=== PATIENT | male | born 1965 | race Caucasian/White ===

== ENCOUNTER → 2018-10-02 | Outpatient (CLI) | payer BC ==
[~2018-10-02] MED LIST: CLON.5 PO; GLIM4 PO; MELO7.5 PO; METF500 PO; METO50 PO; METO50ER PO; OXYACE5T PO; PIOG15 PO; [UNRECOGNIZED DRUG - REMARK]; [UNRECOGNIZED DRUG - REMARK]; [UNRECOGNIZED DRUG - REMARK]
== END | disposition home or self-care (01) ==
LOC: LAB 10:15 → LAB SHORT 10:15
DX: L03.314 Cellulitis of groin (principal)
CPT/HCPCS: 87070; 87075; 87077; 87147; 87186; 87205

== ENCOUNTER → 2019-04-16 | Outpatient (CLI) | payer OTHER ==
[2019-04-16 13:42] LABS: Source, Urine Clean Catch
[2019-04-16 15:28] LABS: Bilirubin, Urine Neg (Neg); Blood, Urine Neg (Neg); Glucose Qualitative, Urine 4+ (Neg); Ketones, Urine 1+ (Neg); Leukocyte Esterase, Urine Neg (Neg); Nitrite, Urine Neg (Neg); Protein, Urine 1+ (Neg); Specific Gravity, Urine 1.015 (1.003-1.022); Urobilinogen, Urine NORM (Normal)
[2019-04-16 15:36] LABS: Appearance, Urine Clear (Clear); Color, Urine Yellow (P-Yellow)
== END | disposition home or self-care (01) ==
LOC: LAB 13:38 → LAB SHORT 13:38
PROVIDERS: Nurse Practitioner
DX: R10.9 Unspecified abdominal pain (principal)
CPT/HCPCS: 81003

== ENCOUNTER 2021-05-16 00:59 | Inpatient (IN) | payer BC ==
[~2021-05-16] VITALS: Ht 172.7 cm; Wt 115.7 kg
[2021-05-16] MEDS ORDERED: Simvastatin10 MG PO (02:35)
[2021-05-16] MEDS ORDERED: LOSARTAN POTASS25 M2 PO (02:35)
[2021-05-16] MEDS ORDERED: FARXIGA10 MG PO (02:36)
[2021-05-16 03:02] LABS: BASOPHILS ABSOLUTE AUTO 0.05 K/mm3 (0.00-0.23); BASOPHILS PERCENT AUTO 0 % (0-2); EOSINOPHILS ABSOLUTE AUTO 0.01 K/mm3 (0.00-0.68); EOSINOPHILS PERCENT AUTO 0 % (0-6); Hematocrit 47.7 % (37.0-53.0); Hemoglobin 16.7 g/dL (13.5-17.5); IMMATURE GRAN ABSOLUTE AUTO 0.07 K/mm3 (0.00-0.10); IMMATURE GRAN PERCENT AUTO 1 % (0-1); LYMPHOCYTES ABSOLUTE AUTO 1.21 K/mm3 (0.84-5.20); LYMPHOCYTES PERCENT AUTO 9 % (21-46); MONOCYTES ABSOLUTE AUTO 0.55 K/mm3 (0.16-1.47); MONOCYTES PERCENT AUTO 4 % (4-13); Mean Corpuscular HGB 30.5 pg (26.0-34.0); Mean Corpuscular Volume 87 fL (80-100); NEUTROPHILS ABSOLUTE AUTO 11.88 K/mm3 (1.96-9.15); NEUTROPHILS PERCENT AUTO 86 % (41-73); Platelet Count 189 K/mm3 (150-400); RDW Coefficient Variation 12.8 % (11.7-14.2); Red Blood Cell Count 5.48 M/mm3 (4.30-5.90); White Blood Cell Count 13.77 K/mm3 (4.00-11.30)
[2021-05-16 03:19] LABS: Anion Gap 11 mmol/L (6-16); Blood Urea Nitrogen 13 mg/dL (8-24); Bun/Creatinine Ratio 16.8 (12.0-20.0); CO2, Blood 25 mmol/L (21-32); Calcium, Blood 9.1 mg/dL (8.5-10.1); Chloride, Blood 102 mmol/L (98-108); Creatinine, Blood 0.78 mg/dL (0.60-1.20); Glomerular Filtration Rate >60 (60-); Glucose, Blood 234 mg/dL (70-99); Sodium, Blood 138 mmol/L (136-145)
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
[2021-05-16 12:59] LABS: SARS-Cov-2 (COVID-19) PCR, MMC NEGATIVE (NEGATIVE)
--- NOTE | 2021-05-16 16:21 | NUR ---
PT ARRIVED TO THE MEDICAL FLOOR FROM THE ER AROUND 1300 VIA GURNEY. THE PT WAS ABLE TO TRANSFER FROM THE GURNEY TO THE BED WITH 1 PERSON ASSIST. THE PT APPEARS TO BE BREATHING EASILY ON RA. THE PT WAS ABLE TO ANSWER QUESTIONS APPROPRIATLY. THE PT IS A/OX4. PT WAS ORIENTED TO THE ROOM CALL SYSTEM AND LAYOUT. DR. OROZCO CONSULTED ON THE P,T PLAN IS FOR UPPER SCOPE TOMORROW. CALL LIGHT IN REACH, WILL CONTINUE TO MONITOR AND ASSESS FOR CHANGES
--- NOTE | 2021-05-16 19:07 | NUR ---
The patient is A/OX4 to person, place, time and event. The patient has been pleasent and cooperative with his care. He had right side chest pain and had a chest tube placed. He was medicated with sublimaze and he stated it controlled the pain. He has not asked for additional pain medication and stated his current level of pain is a 2/10. His chest tube us attached to a pleuravac and is attached to wall suction. There is some blood in the collection container. The patient is not on rm air. He is a stand by assist to the BSC. He has not had any acute changes since the chest tube and all lung martinez were clear. The patient is lying in his bed watching TV.
--- NOTE | 2021-05-17 07:13 | NUR ---
SHIFT SUMMARY PT IS A 55 Y/O MALE, ADMITTED FOR R PNEUMOTHORAX. HE IS A&O X 4, SBA. CHEST TUBE IN PLACE, DRAINING SEROSANGUINOUS FLUID. HE WAS MEDICATED FOR PAIN WITH PRN NORCO. NO C/O NAUSEA OR SOB. VITAL SIGNS STABLE. NO ACUTE CHANGES IN PT CONDITION NOTED IN PT CONDITION NOTED DURING THE NIGHT. WILL CONTINUE TO MONITOR AND TREAT PER EMAR UNTIL HAND OFF TO DAY SHIFT RN.
--- NOTE | 2021-05-17 18:23 | NUR ---
SHIFT SUMMARY. CHEST TUBE REMOVED BY DR. HUNTER THIS AFTERNOON, POST CXR D/C ORDERS RECIEVED. IV'S REMOVED. D/C INSTRUCTIONS REVIEWED WITH PT AND COPY PROVIDED. PT ESCORTED TO ENTRANCE BY CRALOZ MARTÍNEZ VIA W/C. NO OTHER CHANGES OR CONCERNS.
== END 2021-05-17 18:11 | disposition home or self-care (01) | DRG 201 ==
LOC: ER 00:59 → MEDS 01:00
PROVIDERS: Emergency Medicine; ADMIT Surgery
PROC: 0W9930Z Drainage of Right Pleural Cavity with Drainage Device, Percutaneous Approach (ICD-10-PCS; principal; 2021-05-16)
DX: S27.0XXA Traumatic pneumothorax, initial encounter (principal); I10 Essential (primary) hypertension; F41.9 Anxiety disorder, unspecified; E11.9 Type 2 diabetes mellitus without complications; Z20.822 Contact with and (suspected) exposure to COVID-19; Z96.641 Presence of right artificial hip joint; Y04.0XXA Assault by unarmed brawl or fight, initial encounter; Y09 Assault by unspecified means; Z79.84 Long term (current) use of oral hypoglycemic drugs; Z79.899 Other long term (current) drug therapy
CPT/HCPCS: 71045; 71046; 71250; 80048; 85025; 96374; 99285-25; A9270; G0378; J3010; U0004

== ENCOUNTER 2022-03-23 09:00 | Day surgery (SDC) | payer OTHER ==
[~2022-03-23] VITALS: Ht 180.3 cm; Wt 107.9 kg
[~2022-03-23 09:00] MED LIST changes: +FARXIGA10 MG PO; +LOSARTAN POTASS25 M2 PO; +RYBELSUS7 MG PO; +SIMV10 PO; +Simvastatin10 MG PO
--- NOTE | 2022-03-23 10:24 | NUR ---
Ambulatory in Day Surgery Discharge instructions reviewed with patient. Patient verbalizes understanding. Copy given to patient to take home.Patient states colon prep results clear. History, Chart, Medications and Allergies reviewed before start of procedure.Pre-Op teaching done. Pt verbalizes understanding. Patient States Post-Procedure ride home has been arranged.
--- NOTE | 2022-03-23 10:26 | NUR ---
03/23/22 1026 Janelle Lancaster History, Chart, Medications and Allergies reviewed before start of procedure.HISTORY, CHART, MEDICATIONS AND ALLERGIES REVIEWED BEFORE START OF PROCEDURE. PATIENT CONFIRMS NPO STATUS AND AGREES WITH SCHEDULED PROCEDURE. 3-LEAD EKG REVIEWED WITH PHYSICIAN PRIOR TO START OF PROCEDURE. MONITOR INTACT WITH CONTINUOUS PULSE OXIMETRY,CAPNOGRAPHY, 3-LEAD EKG, INTERMITTENT BP. SUPPLEMENTAL O2 TO BE TITRATED THROUGHOUT PROCEDURE TO MAINTAIN O2 SATURATION ABOVE 90%. PATIENT DETERMINED TO BE ASA APPROPRIATE FOR PROPOFOL SEDATION PRIOR TO START OF PROCEDURE BY DR. CHANG
--- NOTE | 2022-03-23 11:31 | NUR ---
Discharged via wheelchair to private car for ride home.
--- NOTE | 2022-03-23 11:31 | NUR ---
Discharge instructions reviewed with patient. Patient verbalizes understanding. Copy given to patient to take home. Patient States Post-Procedure ride home has been arranged.
== END 2022-03-23 23:26 | disposition home or self-care (01) ==
LOC: ORSCMMR 09:00 → ORD 10:00 → ORSCMMR 23:26
PROVIDERS: Internal Medicine Gastroenterology
PROC: 0DJD8ZZ Inspection of Lower Intestinal Tract, Via Natural or Artificial Opening Endoscopic (ICD-10-PCS; principal; 2022-03-23 10:00)
DX: Z12.11 Encounter for screening for malignant neoplasm of colon (principal); I10 Essential (primary) hypertension; E11.9 Type 2 diabetes mellitus without complications; E78.00 Pure hypercholesterolemia, unspecified; E66.9 Obesity, unspecified; Z68.34 Body mass index [BMI] 34.0-34.9, adult; Z79.899 Other long term (current) drug therapy
CPT/HCPCS: 82947; J2704; J7120

== ENCOUNTER 2023-01-03 09:22 | Day surgery (SDC) | payer OTHER ==
[2023-01-03] VITALS (17 sets, daily range): BP systolic 79–119; BP diastolic 45–90
[~2023-01-03] VITALS: Ht 180.3 cm; Wt 108.7 kg
--- NOTE | 2023-01-03 16:07 | NUR ---
ARRIVAL PATIENT TO UNIT VIA BED. AQUACEL TO LEFT HIP, C/D/I. PATIENT DENIES PAIN, HAD SPINAL FOR SURGERY. SENSATION TO BLE ALTHOUGH STILL NUMB, UNABLE TO WIGGLE TOES AT THIS TIME. VSS ON RA, LUNGS CLEAR. ORIENTED TO ROOM & CALL LIGHT, IN REACH.
--- NOTE | 2023-01-03 18:25 | NUR ---
SHIFT SUMMARY NO ACUTE CHANGES SINCE ARRIVAL TO [facility]. BLOOD PRESSURE HAS COME UP TO LOW 100'S/70'S, PATIENT REMAINS ASYMPTOMATIC. EATING & DRINKING WELL, DENIES N/V. HAS NOT VOIDED YET POST-OPERATIVELY. SOME NUMBNESS STILL TO BLE R/T SPINAL, HAS NOT AMBULATED YET. CALLS APPROPRIATELY, IN REACH. WILL REPORT TO ONCOMING RN AT 1900.
--- NOTE | 2023-01-04 03:51 | NUR ---
SHIFT SUMMARY A/O X4- POD1 L TOTAL HIP- AQUACEL DRESSING C/D/I. PAIN MANAGED W/ TORADOL AND TYLENOL. VSS. AMBULATED W/ RN ASSIST TO BATHROOM W/ FWW AND GB. TOLERATING PO INTAKE. PLEASANT AND COOPERATIVE W/ CARE. WILL CONTINUE TO MONITOR AND REPORT TO ONCOMING RN.
[2023-01-04 04:49] LABS: BASOPHILS ABSOLUTE AUTO 0.04 K/mm3 (0.00-0.23); BASOPHILS PERCENT AUTO 0 % (0-2); EOSINOPHILS PERCENT AUTO 2 % (0-6); Hematocrit 41.3 % (37.0-53.0); Hemoglobin 14.3 g/dL (13.5-17.5); IMMATURE GRAN ABSOLUTE AUTO 0.03 K/mm3 (0.00-0.10); IMMATURE GRAN PERCENT AUTO 0 % (0-1); LYMPHOCYTES ABSOLUTE AUTO 1.84 K/mm3 (0.84-5.20); LYMPHOCYTES PERCENT AUTO 19 % (21-46); MONOCYTES ABSOLUTE AUTO 0.89 K/mm3 (0.16-1.47); MONOCYTES PERCENT AUTO 9 % (4-13); Mean Corpuscular HGB 29.9 pg (26.0-34.0); Mean Corpuscular HGB Conc 34.6 g/dL (31.5-36.5); Mean Corpuscular Volume 86 fL (80-100); Mean Platelet Volume 9.7 fL (9.1-12.4); NEUTROPHILS ABSOLUTE AUTO 6.76 K/mm3 (1.96-9.15); NEUTROPHILS PERCENT AUTO 69 % (41-73); Platelet Count 142 K/mm3 (150-400); RDW Coefficient Variation 12.5 % (11.7-14.2); RDW Standard Deviation 39.4 fL (35.1-46.3); Red Blood Cell Count 4.79 M/mm3 (4.30-5.90); White Blood Cell Count 9.76 K/mm3 (4.00-11.30)
[2023-01-04 05:05] VITALS: BP 122/83
[2023-01-04 05:12] LABS: Bun/Creatinine Ratio 22.9 (12.0-20.0); Calcium, Blood 8.7 mg/dL (8.5-10.1); Creatinine, Blood 0.66 mg/dL (0.60-1.20)
[2023-01-04 07:52] VITALS: BP 114/69
[2023-01-04] MEDS ORDERED: Aspir 8181 MG PO (11:07)
[2023-01-04] MEDS ORDERED: Percocet 5-3251 EACH PO (11:11)
[2023-01-04 11:25] VITALS: BP 112/68
--- NOTE | 2023-01-04 11:25 | NUR ---
IV RFA D/C'D INTACT, SITE CLEAR
--- NOTE | 2023-01-04 11:37 | NUR ---
DISCHARGE PT PROVIDED WITH WRITTEN AND VERBAL DISCHARGE INSTRUCTIONS; PT REPORTED UNDERSTANDING. PT PROVIDED WITH CLEAN DRESSINGS. PT ABLE TO VOID, PASS FLATUS, AND CLEARED THERAPY PRIOR TO DISCHARGE. VSS. PRIOR TO DISCHARGE. PT WAS PROVIDED WITH AND EDUCATED TO USE AN INCENTIVE SPIROMETER. PT ESCORTED OUT IN A W/C AT 1138 BY LIDA RIVAS.
== END 2023-01-04 11:38 | disposition home or self-care (01) ==
LOC: ORSCMMR 09:22 → ORD 11:00 → ORSCMMR 11:00 → SURS 15:40 → ORSCMMR 15:40 → SURS 01-04 11:38
PROVIDERS: Orthopaedic Surgery
PROC: 0SRB0JZ Replacement of Left Hip Joint with Synthetic Substitute, Open Approach (ICD-10-PCS; principal; 2023-01-03 11:00)
DX: M16.12 Unilateral primary osteoarthritis, left hip (principal); Z96.641 Presence of right artificial hip joint; E11.9 Type 2 diabetes mellitus without complications; I10 Essential (primary) hypertension; E78.5 Hyperlipidemia, unspecified; Z79.84 Long term (current) use of oral hypoglycemic drugs; Z79.82 Long term (current) use of aspirin
CPT/HCPCS: 27130; 0055T; 36415; 72170; 80048; 82947; 85025; 97110; 97116; 97162; A9270; C1776; J0171; J0690; J0735; J1885; J2250; J2704; J2795; J3010; J3370; J7120

== ENCOUNTER 2024-05-13 00:49 | Day surgery (SDC) | payer OTHER ==
[~2024-05-13 00:49] MED LIST changes: +Aspir 8181 MG PO; +Percocet 5-3251 EACH PO
== END 2024-05-14 22:50 | disposition home or self-care (01) ==
LOC: WOUND 00:49
DX: E11.621 Type 2 diabetes mellitus with foot ulcer (principal); L97.529 Non-pressure chronic ulcer of other part of left foot with unspecified severity
CPT/HCPCS: G0463

== ENCOUNTER 2024-06-17 04:28 | Day surgery (SDC) | payer OTHER | END 2024-06-18 23:11 | disposition home or self-care (01) | LOC: WOUND 04:28 | DX: E11.621 Type 2 diabetes mellitus with foot ulcer (principal); L97.512 Non-pressure chronic ulcer of other part of right foot with fat layer exposed; E11.40 Type 2 diabetes mellitus with diabetic neuropathy, unspecified; I10 Essential (primary) hypertension | CPT/HCPCS: G0463 ==

== ENCOUNTER 2024-06-24 01:36 | Day surgery (SDC) | payer OTHER | END 2024-06-24 23:00 | disposition home or self-care (01) | LOC: WOUND 01:36 | DX: E11.621 Type 2 diabetes mellitus with foot ulcer (principal); L97.512 Non-pressure chronic ulcer of other part of right foot with fat layer exposed; E11.40 Type 2 diabetes mellitus with diabetic neuropathy, unspecified; I10 Essential (primary) hypertension | CPT/HCPCS: G0463 ==

== ENCOUNTER → 2024-07-01 | Day surgery (SDC) | payer OTHER | LOC: WOUND 02:25 | DX: E11.621 Type 2 diabetes mellitus with foot ulcer (principal); L97.512 Non-pressure chronic ulcer of other part of right foot with fat layer exposed; E11.40 Type 2 diabetes mellitus with diabetic neuropathy, unspecified; I10 Essential (primary) hypertension | CPT/HCPCS: 73630; G0463 ==

== ENCOUNTER 2024-07-08 02:46 | Day surgery (SDC) | payer OTHER | END 2024-07-08 23:00 | disposition home or self-care (01) | LOC: WOUND 02:46 | DX: E11.621 Type 2 diabetes mellitus with foot ulcer (principal); L97.512 Non-pressure chronic ulcer of other part of right foot with fat layer exposed; I10 Essential (primary) hypertension | CPT/HCPCS: G0463 ==

== ENCOUNTER 2024-07-15 02:43 | Day surgery (SDC) | payer OTHER | END 2024-07-15 23:48 | disposition home or self-care (01) | LOC: WOUND 02:43 | DX: E11.621 Type 2 diabetes mellitus with foot ulcer (principal); L97.512 Non-pressure chronic ulcer of other part of right foot with fat layer exposed; E11.40 Type 2 diabetes mellitus with diabetic neuropathy, unspecified; I10 Essential (primary) hypertension; E11.69 Type 2 diabetes mellitus with other specified complication; M86.172 Other acute osteomyelitis, left ankle and foot | CPT/HCPCS: G0463 ==

== ENCOUNTER 2024-07-22 01:54 | Day surgery (SDC) | payer OTHER | END 2024-07-23 00:14 | disposition home or self-care (01) | LOC: WOUND 01:54 | DX: E11.621 Type 2 diabetes mellitus with foot ulcer (principal); L97.512 Non-pressure chronic ulcer of other part of right foot with fat layer exposed; E11.40 Type 2 diabetes mellitus with diabetic neuropathy, unspecified; I10 Essential (primary) hypertension; E11.69 Type 2 diabetes mellitus with other specified complication; M86.672 Other chronic osteomyelitis, left ankle and foot | CPT/HCPCS: G0463 ==

== ENCOUNTER 2024-07-29 03:48 | Day surgery (SDC) | payer OTHER | END 2024-07-29 23:00 | disposition home or self-care (01) | LOC: WOUND 03:48 | DX: E11.621 Type 2 diabetes mellitus with foot ulcer (principal); L97.512 Non-pressure chronic ulcer of other part of right foot with fat layer exposed; E11.40 Type 2 diabetes mellitus with diabetic neuropathy, unspecified; E11.69 Type 2 diabetes mellitus with other specified complication; M86.672 Other chronic osteomyelitis, left ankle and foot; L97.529 Non-pressure chronic ulcer of other part of left foot with unspecified severity; I10 Essential (primary) hypertension | CPT/HCPCS: G0463 ==

== ENCOUNTER 2024-08-12 02:31 | Day surgery (SDC) | payer OTHER | END 2024-08-12 23:20 | disposition home or self-care (01) | LOC: HBO 02:31 | DX: E11.621 Type 2 diabetes mellitus with foot ulcer (principal); L97.529 Non-pressure chronic ulcer of other part of left foot with unspecified severity; E11.69 Type 2 diabetes mellitus with other specified complication; M86.672 Other chronic osteomyelitis, left ankle and foot | CPT/HCPCS: 82947; G0277 ==

== ENCOUNTER 2024-08-12 02:37 | Day surgery (SDC) | payer OTHER | END 2024-08-12 23:21 | disposition home or self-care (01) | LOC: WOUND 02:37 | DX: E11.621 Type 2 diabetes mellitus with foot ulcer (principal); L97.512 Non-pressure chronic ulcer of other part of right foot with fat layer exposed; E11.40 Type 2 diabetes mellitus with diabetic neuropathy, unspecified; L97.529 Non-pressure chronic ulcer of other part of left foot with unspecified severity; E11.69 Type 2 diabetes mellitus with other specified complication; M86.672 Other chronic osteomyelitis, left ankle and foot; I10 Essential (primary) hypertension | CPT/HCPCS: G0463 ==

== ENCOUNTER 2024-08-13 01:00 | Day surgery (SDC) | payer OTHER | END 2024-08-13 23:29 | disposition home or self-care (01) | LOC: HBO 01:00 | DX: E11.621 Type 2 diabetes mellitus with foot ulcer (principal); L97.529 Non-pressure chronic ulcer of other part of left foot with unspecified severity; E11.69 Type 2 diabetes mellitus with other specified complication; M86.672 Other chronic osteomyelitis, left ankle and foot | CPT/HCPCS: 82947; G0277 ==

== ENCOUNTER 2024-08-14 00:54 | Day surgery (SDC) | payer OTHER | END 2024-08-14 23:02 | disposition home or self-care (01) | LOC: HBO 00:54 | DX: E11.621 Type 2 diabetes mellitus with foot ulcer (principal); L97.529 Non-pressure chronic ulcer of other part of left foot with unspecified severity; E11.69 Type 2 diabetes mellitus with other specified complication; M86.672 Other chronic osteomyelitis, left ankle and foot | CPT/HCPCS: 82947; G0277 ==

== ENCOUNTER 2024-08-19 00:16 | Day surgery (SDC) | payer OTHER | END 2024-08-20 00:01 | disposition home or self-care (01) | LOC: HBO 00:16 | DX: E11.621 Type 2 diabetes mellitus with foot ulcer (principal); L97.529 Non-pressure chronic ulcer of other part of left foot with unspecified severity; E11.69 Type 2 diabetes mellitus with other specified complication; M86.672 Other chronic osteomyelitis, left ankle and foot; M86.172 Other acute osteomyelitis, left ankle and foot | CPT/HCPCS: 82947; G0277 ==

== ENCOUNTER 2024-08-19 01:07 | Day surgery (SDC) | payer OTHER ==
[2024-08-19] MEDS ORDERED: Silver Nitr/Potassium Nitrate 1 EA APPL ONE (10:19)
== END 2024-08-19 23:00 | disposition home or self-care (01) ==
LOC: WOUND 01:07
DX: E11.621 Type 2 diabetes mellitus with foot ulcer (principal); L97.522 Non-pressure chronic ulcer of other part of left foot with fat layer exposed; E11.69 Type 2 diabetes mellitus with other specified complication; M86.672 Other chronic osteomyelitis, left ankle and foot; M86.172 Other acute osteomyelitis, left ankle and foot
CPT/HCPCS: A9270

== ENCOUNTER 2024-08-20 04:34 | Day surgery (SDC) | payer OTHER | END 2024-08-20 23:00 | disposition home or self-care (01) | LOC: HBO 04:34 | DX: E11.69 Type 2 diabetes mellitus with other specified complication (principal); M86.671 Other chronic osteomyelitis, right ankle and foot | CPT/HCPCS: 82947; G0277 ==

== ENCOUNTER 2024-08-21 01:47 | Day surgery (SDC) | payer OTHER | END 2024-08-21 23:00 | disposition home or self-care (01) | LOC: HBO 01:47 | DX: E11.621 Type 2 diabetes mellitus with foot ulcer (principal); L97.529 Non-pressure chronic ulcer of other part of left foot with unspecified severity; E11.69 Type 2 diabetes mellitus with other specified complication; M86.672 Other chronic osteomyelitis, left ankle and foot; M86.172 Other acute osteomyelitis, left ankle and foot | CPT/HCPCS: 82947; G0277 ==

== ENCOUNTER 2024-08-22 10:09 | Day surgery (SDC) | payer OTHER | END 2024-08-22 23:00 | disposition home or self-care (01) | LOC: HBO 10:09 | DX: E11.69 Type 2 diabetes mellitus with other specified complication (principal); M86.671 Other chronic osteomyelitis, right ankle and foot | CPT/HCPCS: 82947; G0277 ==

== ENCOUNTER 2024-08-23 05:52 | Day surgery (SDC) | payer OTHER | END 2024-08-23 23:00 | disposition home or self-care (01) | LOC: HBO 05:52 | DX: E11.69 Type 2 diabetes mellitus with other specified complication (principal); M86.671 Other chronic osteomyelitis, right ankle and foot | CPT/HCPCS: 82947; G0277 ==

== ENCOUNTER 2024-08-26 04:47 | Day surgery (SDC) | payer OTHER | END 2024-08-26 23:00 | disposition home or self-care (01) | LOC: HBO 04:47 | DX: E11.621 Type 2 diabetes mellitus with foot ulcer (principal); L97.529 Non-pressure chronic ulcer of other part of left foot with unspecified severity; E11.69 Type 2 diabetes mellitus with other specified complication; M86.672 Other chronic osteomyelitis, left ankle and foot | CPT/HCPCS: 82947; G0277 ==

== ENCOUNTER 2024-08-26 05:42 | Day surgery (SDC) | payer OTHER | END 2024-08-26 23:00 | disposition home or self-care (01) | LOC: WOUND 05:42 | DX: E11.621 Type 2 diabetes mellitus with foot ulcer (principal); L97.512 Non-pressure chronic ulcer of other part of right foot with fat layer exposed; E11.69 Type 2 diabetes mellitus with other specified complication; M86.672 Other chronic osteomyelitis, left ankle and foot; E11.40 Type 2 diabetes mellitus with diabetic neuropathy, unspecified; I10 Essential (primary) hypertension | CPT/HCPCS: G0463 ==

== ENCOUNTER 2024-08-27 01:39 | Day surgery (SDC) | payer OTHER | END 2024-08-27 23:00 | disposition home or self-care (01) | LOC: HBO 01:39 | DX: E11.69 Type 2 diabetes mellitus with other specified complication (principal); M86.671 Other chronic osteomyelitis, right ankle and foot | CPT/HCPCS: 82947; G0277 ==

== ENCOUNTER 2024-08-28 03:44 | Day surgery (SDC) | payer OTHER | END 2024-08-28 23:00 | disposition home or self-care (01) | LOC: HBO 03:44 | DX: E11.69 Type 2 diabetes mellitus with other specified complication (principal); M86.671 Other chronic osteomyelitis, right ankle and foot; M86.172 Other acute osteomyelitis, left ankle and foot; E11.621 Type 2 diabetes mellitus with foot ulcer; L97.529 Non-pressure chronic ulcer of other part of left foot with unspecified severity; M86.672 Other chronic osteomyelitis, left ankle and foot | CPT/HCPCS: 82947; G0277 ==

== ENCOUNTER 2024-08-30 03:28 | Day surgery (SDC) | payer OTHER | END 2024-08-30 23:00 | disposition home or self-care (01) | LOC: HBO 03:28 | DX: E11.69 Type 2 diabetes mellitus with other specified complication (principal); M86.671 Other chronic osteomyelitis, right ankle and foot | CPT/HCPCS: 82947 ==

== ENCOUNTER 2024-09-02 03:00 | Day surgery (SDC) | payer OTHER | END 2024-09-02 23:00 | disposition home or self-care (01) | LOC: HBO 03:00 | DX: E11.69 Type 2 diabetes mellitus with other specified complication (principal); M86.671 Other chronic osteomyelitis, right ankle and foot | CPT/HCPCS: 82947; G0277 ==

== ENCOUNTER 2024-09-02 03:13 | Day surgery (SDC) | payer OTHER | END 2024-09-02 23:00 | disposition home or self-care (01) | LOC: WOUND 03:13 | DX: E11.621 Type 2 diabetes mellitus with foot ulcer (principal); L97.511 Non-pressure chronic ulcer of other part of right foot limited to breakdown of skin; E11.69 Type 2 diabetes mellitus with other specified complication; M86.672 Other chronic osteomyelitis, left ankle and foot; I10 Essential (primary) hypertension; E11.40 Type 2 diabetes mellitus with diabetic neuropathy, unspecified | CPT/HCPCS: G0463 ==

== ENCOUNTER 2024-09-03 04:11 | Day surgery (SDC) | payer OTHER | END 2024-09-03 23:00 | disposition home or self-care (01) | LOC: HBO 04:11 | DX: E11.69 Type 2 diabetes mellitus with other specified complication (principal); M86.671 Other chronic osteomyelitis, right ankle and foot | CPT/HCPCS: 82947; G0277 ==

== ENCOUNTER 2024-09-04 05:13 | Day surgery (SDC) | payer OTHER | END 2024-09-04 23:00 | disposition home or self-care (01) | LOC: HBO 05:13 | DX: E11.69 Type 2 diabetes mellitus with other specified complication (principal); M86.671 Other chronic osteomyelitis, right ankle and foot | CPT/HCPCS: 82947; G0277 ==

== ENCOUNTER 2024-09-05 04:38 | Day surgery (SDC) | payer OTHER | END 2024-09-05 23:00 | disposition home or self-care (01) | LOC: HBO 04:38 | PROC: 5A05121 Extracorporeal Hyperbaric Oxygenation, Intermittent (ICD-10-PCS; principal; 2024-09-05) | DX: E11.69 Type 2 diabetes mellitus with other specified complication (principal); M86.171 Other acute osteomyelitis, right ankle and foot; M86.671 Other chronic osteomyelitis, right ankle and foot; E11.621 Type 2 diabetes mellitus with foot ulcer; L97.519 Non-pressure chronic ulcer of other part of right foot with unspecified severity | CPT/HCPCS: 82947; G0277 ==

== ENCOUNTER 2024-09-06 01:46 | Day surgery (SDC) | payer OTHER | END 2024-09-06 23:00 | disposition home or self-care (01) | LOC: HBO 01:46 | DX: E11.69 Type 2 diabetes mellitus with other specified complication (principal); M86.671 Other chronic osteomyelitis, right ankle and foot; M86.171 Other acute osteomyelitis, right ankle and foot; E11.621 Type 2 diabetes mellitus with foot ulcer | CPT/HCPCS: 82947; G0277 ==

== ENCOUNTER 2024-09-09 04:34 | Day surgery (SDC) | payer OTHER | END 2024-09-11 23:00 | disposition home or self-care (01) | LOC: HBO 04:34 | DX: E11.69 Type 2 diabetes mellitus with other specified complication (principal); M86.171 Other acute osteomyelitis, right ankle and foot; E11.621 Type 2 diabetes mellitus with foot ulcer | CPT/HCPCS: 82947; G0277 ==

== ENCOUNTER 2024-09-16 03:01 | Day surgery (SDC) | payer OTHER | END 2024-09-16 23:00 | disposition home or self-care (01) | LOC: HBO 03:01 | DX: E11.69 Type 2 diabetes mellitus with other specified complication (principal); M86.671 Other chronic osteomyelitis, right ankle and foot | CPT/HCPCS: 82947; G0277 ==

== ENCOUNTER 2024-09-16 03:11 | Day surgery (SDC) | payer OTHER | END 2024-09-16 23:00 | disposition home or self-care (01) | LOC: WOUND 03:11 | DX: E11.69 Type 2 diabetes mellitus with other specified complication (principal); M86.171 Other acute osteomyelitis, right ankle and foot; E11.621 Type 2 diabetes mellitus with foot ulcer; L97.519 Non-pressure chronic ulcer of other part of right foot with unspecified severity; I10 Essential (primary) hypertension; E11.40 Type 2 diabetes mellitus with diabetic neuropathy, unspecified | CPT/HCPCS: G0463 ==

== ENCOUNTER 2024-09-17 01:11 | Day surgery (SDC) | payer OTHER | END 2024-09-17 23:00 | disposition home or self-care (01) | LOC: HBO 01:11 | DX: E11.69 Type 2 diabetes mellitus with other specified complication (principal); M86.671 Other chronic osteomyelitis, right ankle and foot | CPT/HCPCS: 82947; G0277 ==

== ENCOUNTER 2024-09-19 04:29 | Day surgery (SDC) | payer OTHER | END 2024-09-19 23:00 | disposition home or self-care (01) | LOC: HBO 04:29 | DX: E11.69 Type 2 diabetes mellitus with other specified complication (principal); M86.671 Other chronic osteomyelitis, right ankle and foot | CPT/HCPCS: 82947; G0277 ==

== ENCOUNTER 2024-09-20 04:32 | Day surgery (SDC) | payer OTHER | END 2024-09-20 23:00 | disposition home or self-care (01) | LOC: HBO 04:32 | DX: E11.69 Type 2 diabetes mellitus with other specified complication (principal); M86.671 Other chronic osteomyelitis, right ankle and foot | CPT/HCPCS: 82947; G0277 ==

== ENCOUNTER 2024-09-23 03:07 | Day surgery (SDC) | payer OTHER | END 2024-09-23 23:00 | disposition home or self-care (01) | LOC: HBO 03:07 | DX: E11.69 Type 2 diabetes mellitus with other specified complication (principal); M86.671 Other chronic osteomyelitis, right ankle and foot | CPT/HCPCS: 82947; G0277 ==

== ENCOUNTER 2024-09-24 05:57 | Day surgery (SDC) | payer OTHER | END 2024-09-24 23:00 | disposition home or self-care (01) | LOC: HBO 05:57 | DX: E11.621 Type 2 diabetes mellitus with foot ulcer (principal); E11.69 Type 2 diabetes mellitus with other specified complication; M86.171 Other acute osteomyelitis, right ankle and foot; M86.672 Other chronic osteomyelitis, left ankle and foot | CPT/HCPCS: 82947; G0277 ==

== ENCOUNTER 2024-09-25 00:49 | Day surgery (SDC) | payer OTHER | END 2024-09-25 23:00 | disposition home or self-care (01) | LOC: HBO 00:49 | DX: E11.621 Type 2 diabetes mellitus with foot ulcer (principal); E11.69 Type 2 diabetes mellitus with other specified complication; M86.672 Other chronic osteomyelitis, left ankle and foot; M86.171 Other acute osteomyelitis, right ankle and foot | CPT/HCPCS: 82947; G0277 ==

== ENCOUNTER 2024-09-27 06:12 | Day surgery (SDC) | payer OTHER | END 2024-09-27 23:00 | disposition home or self-care (01) | LOC: HBO 06:12 | DX: E11.69 Type 2 diabetes mellitus with other specified complication (principal); M86.671 Other chronic osteomyelitis, right ankle and foot | CPT/HCPCS: 82947; G0277 ==

== ENCOUNTER 2024-09-30 04:20 | Day surgery (SDC) | payer OTHER | END 2024-09-30 23:00 | disposition home or self-care (01) | LOC: HBO 04:20 | DX: E11.621 Type 2 diabetes mellitus with foot ulcer (principal); E11.69 Type 2 diabetes mellitus with other specified complication; M86.672 Other chronic osteomyelitis, left ankle and foot | CPT/HCPCS: 82947; G0277 ==

== ENCOUNTER 2024-09-30 04:35 | Day surgery (SDC) | payer OTHER | END 2024-09-30 23:00 | disposition home or self-care (01) | LOC: WOUND 04:35 | DX: E11.69 Type 2 diabetes mellitus with other specified complication (principal); M86.672 Other chronic osteomyelitis, left ankle and foot; M86.171 Other acute osteomyelitis, right ankle and foot; E11.40 Type 2 diabetes mellitus with diabetic neuropathy, unspecified; I10 Essential (primary) hypertension | CPT/HCPCS: G0463 ==

== ENCOUNTER 2024-10-01 08:18 | Day surgery (SDC) | payer OTHER | END 2024-10-01 23:00 | disposition home or self-care (01) | LOC: HBO 08:18 | DX: E11.621 Type 2 diabetes mellitus with foot ulcer (principal); E11.69 Type 2 diabetes mellitus with other specified complication; M86.672 Other chronic osteomyelitis, left ankle and foot | CPT/HCPCS: 82947; G0277 ==

== ENCOUNTER 2024-10-02 01:28 | Day surgery (SDC) | payer OTHER | END 2024-10-02 23:01 | disposition home or self-care (01) | LOC: HBO 01:28 | DX: E11.69 Type 2 diabetes mellitus with other specified complication (principal); M86.671 Other chronic osteomyelitis, right ankle and foot; M86.171 Other acute osteomyelitis, right ankle and foot | CPT/HCPCS: 82947; G0277 ==

== ENCOUNTER 2024-10-03 00:37 | Day surgery (SDC) | payer OTHER | END 2024-10-03 23:00 | disposition home or self-care (01) | LOC: HBO 00:37 | DX: E11.69 Type 2 diabetes mellitus with other specified complication (principal); M86.671 Other chronic osteomyelitis, right ankle and foot | CPT/HCPCS: 82947; G0277 ==

== ENCOUNTER 2024-10-07 03:59 | Day surgery (SDC) | payer OTHER | END 2024-10-07 23:00 | disposition home or self-care (01) | LOC: HBO 03:59 | DX: E11.621 Type 2 diabetes mellitus with foot ulcer (principal); E11.69 Type 2 diabetes mellitus with other specified complication; M86.672 Other chronic osteomyelitis, left ankle and foot | CPT/HCPCS: 82947; G0277 ==

== ENCOUNTER 2024-10-09 05:09 | Day surgery (SDC) | payer OTHER | END 2024-10-09 23:00 | disposition home or self-care (01) | LOC: HBO 05:09 | DX: E11.621 Type 2 diabetes mellitus with foot ulcer (principal); E11.69 Type 2 diabetes mellitus with other specified complication; M86.672 Other chronic osteomyelitis, left ankle and foot | CPT/HCPCS: 82947; G0277 ==

== ENCOUNTER → 2024-10-10 | Day surgery (SDC) | payer OTHER | LOC: HBO 04:44 | DX: E11.621 Type 2 diabetes mellitus with foot ulcer (principal); E11.69 Type 2 diabetes mellitus with other specified complication; M86.672 Other chronic osteomyelitis, left ankle and foot | CPT/HCPCS: 82947; G0277 ==

== ENCOUNTER 2024-10-11 03:08 | Day surgery (SDC) | payer OTHER | END 2024-10-11 23:00 | disposition home or self-care (01) | LOC: HBO 03:08 | DX: E11.621 Type 2 diabetes mellitus with foot ulcer (principal); E11.69 Type 2 diabetes mellitus with other specified complication; M86.672 Other chronic osteomyelitis, left ankle and foot | CPT/HCPCS: 82947; G0277 ==

== ENCOUNTER 2024-10-15 05:21 | Day surgery (SDC) | payer OTHER | END 2024-10-15 23:00 | disposition home or self-care (01) | LOC: HBO 05:21 | DX: E11.69 Type 2 diabetes mellitus with other specified complication (principal); M86.671 Other chronic osteomyelitis, right ankle and foot | CPT/HCPCS: 82947; G0277 ==

== ENCOUNTER 2024-10-16 03:01 | Day surgery (SDC) | payer OTHER | END 2024-10-16 23:00 | disposition home or self-care (01) | LOC: HBO 03:01 | DX: E11.69 Type 2 diabetes mellitus with other specified complication (principal); M86.671 Other chronic osteomyelitis, right ankle and foot | CPT/HCPCS: 82947; G0277 ==

== ENCOUNTER 2024-10-17 01:20 | Day surgery (SDC) | payer OTHER | END 2024-10-18 23:00 | disposition home or self-care (01) | LOC: HBO 01:20 | DX: E11.69 Type 2 diabetes mellitus with other specified complication (principal); M86.671 Other chronic osteomyelitis, right ankle and foot | CPT/HCPCS: 82947; G0277 ==

== ENCOUNTER 2024-10-18 03:46 | Day surgery (SDC) | payer OTHER | END 2024-10-18 23:00 | disposition home or self-care (01) | LOC: HBO 03:46 | DX: E11.69 Type 2 diabetes mellitus with other specified complication (principal); M86.671 Other chronic osteomyelitis, right ankle and foot | CPT/HCPCS: 82947; G0277 ==

== ENCOUNTER 2024-10-21 06:08 | Day surgery (SDC) | payer OTHER | END 2024-10-21 23:00 | disposition home or self-care (01) | LOC: HBO 06:08 | DX: E11.621 Type 2 diabetes mellitus with foot ulcer (principal); E11.69 Type 2 diabetes mellitus with other specified complication; M86.672 Other chronic osteomyelitis, left ankle and foot | CPT/HCPCS: 82947; G0277 ==

== ENCOUNTER 2024-10-21 06:22 | Day surgery (SDC) | payer OTHER | END 2024-10-21 23:00 | disposition home or self-care (01) | LOC: WOUND 06:22 | DX: E11.69 Type 2 diabetes mellitus with other specified complication (principal); M86.672 Other chronic osteomyelitis, left ankle and foot; M86.171 Other acute osteomyelitis, right ankle and foot; E11.40 Type 2 diabetes mellitus with diabetic neuropathy, unspecified; I10 Essential (primary) hypertension | CPT/HCPCS: G0463 ==

== ENCOUNTER 2024-10-22 01:28 | Day surgery (SDC) | payer OTHER | END 2024-10-22 23:00 | disposition home or self-care (01) | LOC: HBO 01:28 | DX: E11.69 Type 2 diabetes mellitus with other specified complication (principal); M86.671 Other chronic osteomyelitis, right ankle and foot | CPT/HCPCS: 82947; G0277 ==

== ENCOUNTER 2024-10-23 05:58 | Day surgery (SDC) | payer OTHER | END 2024-10-23 23:00 | disposition home or self-care (01) | LOC: HBO 05:58 | DX: E11.621 Type 2 diabetes mellitus with foot ulcer (principal); E11.69 Type 2 diabetes mellitus with other specified complication; M86.672 Other chronic osteomyelitis, left ankle and foot | CPT/HCPCS: 82947; G0277 ==

== ENCOUNTER 2024-10-24 02:09 | Day surgery (SDC) | payer OTHER | END 2024-10-24 23:00 | disposition home or self-care (01) | LOC: HBO 02:09 | DX: E11.621 Type 2 diabetes mellitus with foot ulcer (principal); M86.672 Other chronic osteomyelitis, left ankle and foot | CPT/HCPCS: 82947; G0277 ==

== ENCOUNTER 2024-10-28 00:51 | Day surgery (SDC) | payer OTHER | END 2024-10-28 23:00 | disposition home or self-care (01) | LOC: HBO 00:51 | DX: E11.69 Type 2 diabetes mellitus with other specified complication (principal); M86.671 Other chronic osteomyelitis, right ankle and foot; M86.672 Other chronic osteomyelitis, left ankle and foot | CPT/HCPCS: 82947; G0277 ==

== ENCOUNTER 2024-10-29 11:25 | Day surgery (SDC) | payer OTHER | END 2024-10-29 23:00 | disposition home or self-care (01) | LOC: HBO 11:25 | DX: E11.621 Type 2 diabetes mellitus with foot ulcer (principal); E11.69 Type 2 diabetes mellitus with other specified complication; M86.672 Other chronic osteomyelitis, left ankle and foot | CPT/HCPCS: 82947; G0277 ==

== ENCOUNTER 2024-10-30 11:15 | Day surgery (SDC) | payer OTHER | END 2024-10-30 23:00 | disposition home or self-care (01) | LOC: HBO 11:15 | DX: E11.621 Type 2 diabetes mellitus with foot ulcer (principal); E11.69 Type 2 diabetes mellitus with other specified complication; M86.672 Other chronic osteomyelitis, left ankle and foot; M86.171 Other acute osteomyelitis, right ankle and foot | CPT/HCPCS: 82947; G0277 ==

== ENCOUNTER 2024-10-31 00:08 | Day surgery (SDC) | payer OTHER | END 2024-10-31 23:00 | disposition home or self-care (01) | LOC: HBO 00:08 | DX: E11.69 Type 2 diabetes mellitus with other specified complication (principal); M86.672 Other chronic osteomyelitis, left ankle and foot; E11.621 Type 2 diabetes mellitus with foot ulcer | CPT/HCPCS: 82947; G0277 ==

== ENCOUNTER 2024-11-07 02:22 | Day surgery (SDC) | payer OTHER | END 2024-11-07 23:00 | disposition home or self-care (01) | LOC: HBO 02:22 | DX: E11.69 Type 2 diabetes mellitus with other specified complication (principal); M86.671 Other chronic osteomyelitis, right ankle and foot; M86.672 Other chronic osteomyelitis, left ankle and foot | CPT/HCPCS: 82947; G0277 ==

== ENCOUNTER 2024-11-08 03:48 | Day surgery (SDC) | payer OTHER | END 2024-11-08 23:00 | disposition home or self-care (01) | LOC: HBO 03:48 | DX: E11.69 Type 2 diabetes mellitus with other specified complication (principal); M86.671 Other chronic osteomyelitis, right ankle and foot; M86.672 Other chronic osteomyelitis, left ankle and foot | CPT/HCPCS: 82947; G0277 ==

== ENCOUNTER → 2024-11-13 | Day surgery (SDC) | payer OTHER | LOC: WOUND 01:42 | DX: E11.621 Type 2 diabetes mellitus with foot ulcer (principal); E11.69 Type 2 diabetes mellitus with other specified complication; M86.672 Other chronic osteomyelitis, left ankle and foot | CPT/HCPCS: G0463 ==

== ENCOUNTER → 2024-11-13 | Day surgery (SDC) | payer OTHER | LOC: HBO 01:26 | DX: E11.621 Type 2 diabetes mellitus with foot ulcer (principal); E11.69 Type 2 diabetes mellitus with other specified complication; M86.672 Other chronic osteomyelitis, left ankle and foot | CPT/HCPCS: 82947; G0277 ==

== ENCOUNTER 2024-11-14 00:45 | Day surgery (SDC) | payer OTHER | END 2024-11-14 23:00 | disposition home or self-care (01) | LOC: HBO 00:45 | DX: E11.621 Type 2 diabetes mellitus with foot ulcer (principal); E11.69 Type 2 diabetes mellitus with other specified complication; M86.672 Other chronic osteomyelitis, left ankle and foot; M86.171 Other acute osteomyelitis, right ankle and foot | CPT/HCPCS: 82947; G0277 ==

== ENCOUNTER 2024-11-15 02:04 | Day surgery (SDC) | payer OTHER | END 2024-11-15 23:00 | disposition home or self-care (01) | LOC: HBO 02:04 | DX: E11.69 Type 2 diabetes mellitus with other specified complication (principal); M86.671 Other chronic osteomyelitis, right ankle and foot; M86.672 Other chronic osteomyelitis, left ankle and foot; M86.171 Other acute osteomyelitis, right ankle and foot; E11.621 Type 2 diabetes mellitus with foot ulcer | CPT/HCPCS: 82947; G0277 ==

== ENCOUNTER 2024-11-18 08:18 | Day surgery (SDC) | payer OTHER | END 2024-11-18 23:00 | disposition home or self-care (01) | LOC: HBO 08:18 | DX: E11.69 Type 2 diabetes mellitus with other specified complication (principal); M86.671 Other chronic osteomyelitis, right ankle and foot; M86.171 Other acute osteomyelitis, right ankle and foot | CPT/HCPCS: 82947; G0277 ==

== ENCOUNTER 2024-11-19 00:28 | Day surgery (SDC) | payer OTHER | END 2024-11-19 23:00 | disposition home or self-care (01) | LOC: HBO 00:28 | DX: E11.621 Type 2 diabetes mellitus with foot ulcer (principal); E11.69 Type 2 diabetes mellitus with other specified complication; M86.672 Other chronic osteomyelitis, left ankle and foot; M86.171 Other acute osteomyelitis, right ankle and foot | CPT/HCPCS: 82947; G0277 ==

== ENCOUNTER 2024-11-20 01:04 | Day surgery (SDC) | payer OTHER | END 2024-11-20 23:00 | disposition home or self-care (01) | LOC: HBO 01:04 | DX: E11.621 Type 2 diabetes mellitus with foot ulcer (principal); E11.69 Type 2 diabetes mellitus with other specified complication | CPT/HCPCS: 82947; G0277 ==

== ENCOUNTER 2024-11-21 02:12 | Day surgery (SDC) | payer OTHER | END 2024-11-21 23:00 | disposition home or self-care (01) | LOC: HBO 02:12 | DX: E11.621 Type 2 diabetes mellitus with foot ulcer (principal); E11.69 Type 2 diabetes mellitus with other specified complication; M86.672 Other chronic osteomyelitis, left ankle and foot; M86.171 Other acute osteomyelitis, right ankle and foot | CPT/HCPCS: 82947; G0277 ==

== ENCOUNTER 2024-11-22 04:52 | Day surgery (SDC) | payer OTHER | END 2024-11-22 23:00 | disposition home or self-care (01) | LOC: HBO 04:52 | DX: E11.621 Type 2 diabetes mellitus with foot ulcer (principal); E11.69 Type 2 diabetes mellitus with other specified complication; M86.171 Other acute osteomyelitis, right ankle and foot; M86.672 Other chronic osteomyelitis, left ankle and foot | CPT/HCPCS: 82947; G0277 ==